=== PATIENT | male | born 1940 | race Caucasian/White ===

== ENCOUNTER 2021-11-09 10:31 | Outpatient (CLI) | payer MEDICARE, SELFPAY ==
[2021-11-09 11:17] LABS: Albumin* 4.6 g/dL (3.3-5.0); Chloride* 103 mmol/L (96-114); Creatinine Urine 198.3 mg/dL; Potassium* 4.5 mmol/L (3.6-5.1); Sodium* 140 mmol/L (135-149)
[2021-11-09 11:19] LABS: Cholesterol* 138 mg/dL (90-199)
[2021-11-09 11:20] LABS: Alanine Aminotransferase* 26 U/L (4-50); Alkaline Phosphatase* 127 U/L (40-150); Aspartate Amino Transferase* 24 U/L (12-35); Bilirubin Total* 1.4 mg/dL (0.1-1.5); Blood Urea Nitrogen* 19 mg/dL (7-30); Calcium* 9.2 mg/dL (8.4-10.6); Carbon Dioxide* 26 mmol/L (20-32); Creatinine* 0.8 mg/dL (0.5-1.5); Estimated Glomerular Filt Rate 89 ml/min; Glucose* 170 mg/dL (60-115); Total Protein* 7.2 g/dL (6.0-8.3); Triglycerides* 108 mg/dL (40-149)
[2021-11-09 11:21] LABS: HDL Cholesterol* 38 mg/dL (>=40); LDL Cholesterol Calculated 78 mg/dL (<100); Microalbumin Creatinine Ratio 10 mg/g (0-30); Microalbumin Urine 2 mg/dL
== END 2021-11-09 10:32 | disposition home or self-care (01) ==
PROVIDERS: PCP Family Medicine; Visit Provider Family Medicine
DX: Z00.00 Encounter for general adult medical examination without abnormal findings (principal); E11.9 Type 2 diabetes mellitus without complications; E78.5 Hyperlipidemia, unspecified; F41.9 Anxiety disorder, unspecified; R53.83 Other fatigue; I10 Essential (primary) hypertension; E66.9 Obesity, unspecified
CPT/HCPCS: 80053; 80061; 82043; 82570

== ENCOUNTER 2022-06-28 10:30 | Outpatient (RCR) | payer MEDICARE, SELFPAY ==
--- NOTE | 2022-04-26 13:53 | PT.OPE ---
PT [facility] PT [facility] Start: 04/25/22 16:13 Freq: Status: Active Protocol: Document 04/26/22 13:52 CJT (Rec: 04/26/22 13:53 CJT [id number]) E-signed By Froilan Soto PT Physical Therapy Outpatient Evaluation Insurance Information Recert Due Date 06/23/22 Insurance Name are Medical Diagnosis M54.5 - low back pain M54.2 - cervicalgia R26.89 - other abnormalities of gait and mobility G89.29 - other chronic pain Treating Diagnosis M54.5 - low back pain M54.2 - cervicalgia R26.89 - other abnormalities of gait and mobility Referring Carlito Plaza MD Subjective Subjective Pt presents with multiple issues: neck pain, low back pain, concerns with his balance and falls. Pt is here with his , Ale today. Pts primary complaints today are neck and low back pain, however he also mentions that balance is a top concern of his. Pt recently started exercising again and has been walking regularly about (.75-. 8 miles daily). Balance is way off, dizziness. Sometimes I put my head back and it's almost like I have some vertigo. Pt would like to reduce his back pain and improve his balance. His headaches have reduced in frequency since he started walking again. Pts tells me that he has been walking with short stride length, leans forward, and seems to be in a hurry to find a seat at times. Back pain also causes pain into glutes and into legs , pt points to his hamstrings and anterior thighs. Issues with stepping off curbs as well - sounds like this challenges his balance and strength. Pain in low back/ glutes relieves with sitting Falls in the last year: yes (2 ) Fear of falling: yes Concerns with balance: yes Pain Comments 07/05 Date of Last Physician Visit 04/18/22 Current Work Status Retired Preferred Name Ramez Precautions Therapy Limitations/Systems Review Not Limited Objective Other/Pertinent Objective Cervical ROM Extension ? 33 pain on L side of cervical spine Flexion ? 51 *stretch at posterior skull/cervical spine R/L Side Bend ? 12/05 R/L Rotation ? 35/35 *pt reports pain with overpressure by therapist in each direction ? hard end fell noted with lateral flexion and rotation motions B R Shoulder ROM Flexion/Abduction/IR/ER ? 160/ 160/T10/75 L Shoulder ROM Flexion/Abduction/IR/ER ? 160/ 160/T9/75 Cervical Strength Extension - 5/5 MMT Flexion - 5/5 MMT R/L Side Bend - 5/5 MMT R/L Rotation - 5/5 MMT *did not test cervical flexion endurance Standing Posture: pts hips in approx. 5 degrees flexion when standing erect B Hip Strength Flexion - 5/5 MMT Abduction (seated) - 5/5 MMT Adduction (seated) - 5/5 MMT IR - 4/5 MMT ER - 5/5 MMT Extension - DNT R knee Extension - 5/5 MMT R Knee Flexion - 4+/5 MMT L knee Extension - 5/5 MMT L knee Flexion - 4+/5 MMT R ankle DF - 5/5 MMT L ankle DF - 5/5 MMT Palpation: pt reports pain/ tenderness with palpation to R >L suboccipitals, cervical paraspinals, Gait: short stride length, minimal/no arm swing, slight forward lean 4-Stage Balance: unable to complete stages III and IV ( tandem and SL stance); pt otherwise shows normal sway during stages I, II TU.02s 5 Times Tgf-yb-Wvphn: 18.42s Trosper-Hallpike negative bilaterally today - testing limited due to poor cervical AROM Assessment Assessment/Impression Ramez presents with his Ale today with complaints of neck pain, low back pain, dizziness, and balance concerns. Pt has not been exercising regularly for past 2 years following his second SAMMY. Has started walking again over the past few months with his at [employer] walking approx .75 miles daily in the AM and this is going well, however, after about 20 minutes he needs to sit and rest due to pain in his thighs and glutes. Pts tells me that Ramez has been walking with a short stride length and sometimes walks with what sounds like a festinating gait , however, when I demonstrate this for her in the clinic she tells me it does not look similar to what he is doing. Testing reveals well preserved strength in pts LEs and cervical spine although there are exceptions (see objective) . Cervical AROM is very limited with hard end feel during PROM, likely due to age -related arthritis and joint space narrowing. Pt presents with significant pain with palpation throughout R>L cervical spine and has significant spasm in R SCM muscle. I do think that his dizziness may be related to muscle tissue tension in his cervical spine, especially with his history or headaches. Pt tells me today that he felt a headache onset as well as reduction with palpation to his cervical spine. Testing for BPPV is negative today although needs further assessment. Pts lack of cervical ROM is very limited and achieving a good Antwon- Hallpike test was challenging. Further testing and assessment is needed in order to provide complete therapy for Ramez, but we will continue this when he returns. The nature of the pts condition was explained and all questions were answered to the pts satisfaction. Skilled PT services are medically necessary to address deficits and return patient to highest level of function. Recommend physical therapy sessions 2/ week for 8 weeks. Pt would like to start with 6 sessions and see how he is doing, however he agrees to our plan of scheduling twice weekly for 8 weeks - will modify as needed. Pt agrees with this plan. Printout of HEP was given for I completion and pt gives verbal understanding of each exercise. Plan of Care Rehabilitation Potential Good Physical Therapy Goals STG - To be completed in 2-3 weeks: 1. Pt will demo improve cervical lateral flexion and rotation by 5-10 degrees each so that he may look over his shoulder while driving to watch for oncoming traffic. 2. Pt will balance 10+ seconds in tandem stance with either foot forward as indication of improved static balance to reduce risk of falls. 3. Pt will report reduce in back and neck pain by factor of 2 so that he may continue walking with his for exercise without stopping to rest and recover. LTG - To be completed in 8 weeks: 1. Pt to be I with HEP so that he may I manage progression of symptoms. 2. Pt will complete TUG in <12 seconds as indication of improved mobility and balance as well as to classify him as reduced risk for falling. 3. Pt will complete 5 sit-to- stands from chair in <12 seconds as indication of improved functional strength and reduce risk of falls. 4. Pt will report ability to ambulate 20+ minutes without onset of hip and thigh pain so that he may gradually increase his walking distances with his to maintain his cardiovascular fitness. Treatment Plan/Direct Interventions Gait Training,Heat,Joint Mobilization,Manual Therapy, Neuromuscular Re-ed,Self-Care/ Home Management,Therapeutic Activities,Therapeutic Exercises Frequency/Duration 2/week for 8 weeks Patient Will Be Discharged From Therapy Completion of LTG(s),Skills Plateau,Independent w/HEP, Independently Progressing Evaluation Billing Untimed Code Treatment Minutes 65 PT Eval No Charge No Complexity Low Certification Information Initial Certification Date 04/26/22 Ending Certification Date 06/23/22 Provider Signature Shows Agreement With POC & Medical Necessity Physician Signature & Date Requested Please Sign/Date Here Physician Comment/Change : Physician NPI Number #
--- NOTE | 2022-06-01 16:30 | PT.OPDN ---
PT [facility] Daily Note PT [facility] Daily Note Start: 04/25/22 16:13 Freq: Status: Active Protocol: Document 06/01/22 12:59 CJT (Rec: 06/01/22 16:30 CJT [id number]) E-signed By Froilan Soto, PT PT [facility] Daily Progress Note Visit Information Note Type Recert/Progress Note Visit Number 8 Insurance Authorized Visits no auth required Physician Authorized Visits eval and treat Insurance Information Recert Due Date 06/23/22 Insurance Name jessica Medical Diagnosis M54.5 - low back pain M54.2 - cervicalgia R26.89 - other abnormalities of gait and mobility G89.29 - other chronic pain Treating Diagnosis M54.5 - low back pain M54.2 - cervicalgia R26.89 - other abnormalities of gait and mobility Referring Carlito Plaza MD Subjective Subjective Pt presents with his Ale today and 4WW. Would like to review proper use of walker as well as discuss plan for Ramez in regard to his walking when family flies down to [place] later this month for vacation. Preferred Name Ramez Home Exercise Home Exercise Comments [id number] Objective Other/Pertinent Objective Cervical ROM: today (initial evaluation) Extension ? 30 (33) Flexion ? 45 (51) R/L Side Bend ? 10 (12/05) R/L Rotation ? 54/46 (35/35) 4-Stage Balance: unable to complete stage IV (SL stance); pt otherwise shows normal sway during stages I, II, and III - was previously not able to complete stage III TU.15s (11.02s) TUG with 4WW: 11.4s 5 Times Lnr-jn-Xhzrd: 13.71s ( 18.42s) Patient Instructed in Risks/Benefits Yes Therapeutic Exercise Therapeutic Exercise Minutes (minutes) 5 Therapeutic Exercise: To Restore Squats with hands at rail 2 x Functional Status 8 Heel raises 2 x 10 Therapeutic Activity Therapeutic Activity Minutes (minutes) 4 Therapeutic Activities Comments Ubb-ld-qsmfpz with arms crossed 3 x 5, 7, 7 Gait & Stair Training Gait Training/Stairs Minutes (minutes) 24 Gait & Stair Training Comments Pt ambulates 4 x 350 ft with use of 4WW; VC for lengthening stride and stepping into box of walker rather than trying to walk behind it; VC for avoiding downward pressure through hands with arms extended to reduce tricep involvement. 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 Appropriate use of AD's and education on stability of one device vs. another. Ramez and I had an in depth discussion today with his Ale regarding stability that a 4WW provides is significantly greater than the stability of a walking stick. The walker will also allow Ramez to conserve energy and to walk further and faster than the walking stick of no AD at all. Treatment Minutes Timed Code Treatment Minutes 57 Total Treatment Time 57 Billing Units Gait Training/Stairs Units 2 Self-Care Activity Units 2 Assessment/Impression Assessment/Impression Ramez's tricep pain with use of his walker is clearly due to his body mechanics during use. We reviewed proper use of the walker and he is not having tricep pain now that he is standing/walking closer to his walker, rather than pushing it out in front of him . It seems that his primary issue with the walker is that he did not trust his feet to swing underneath the walker for fear of tripping over the wheels or other components of the walker itself. Ramez, Ale, and I had a lengthy discussion regarding his choice of assistive devices and agreed that his 4WW is going to be Ramez's optimal choice for the time being for safety and energy conservation . Ramez has agreed to use his walker [place] for now until his endurance and gait improves to a point where he can return to use of a walking stick safely. Ramez shows improvements in his cervical AROM although R side bend remains very limited - I feel this is likely due to age- related arthritis. His outcome measure scores for 5 times nom-nh-jcrxk, TUG, and 4-Stage balance test have also shown promising improvement today. Ramez will continue to attend therapy sessions until he leaves for [place] later this month. We will continue to focus on his walking, balance, and functional strength here in therapy as well as continue to track his neck pain and dizziness symptoms as needed. Recommend continued PT services to address deficits and return t to highest level of function. Plan of Care Physical Therapy Goals STG - To be completed in 2-3 weeks: 1. Pt will demo improve cervical lateral flexion and rotation by 5-10 degrees each so that he may look over his shoulder while driving to watch for oncoming traffic. NOT MET - R lateral flexion unchanged; L lateral flexion and B rotation ROM goals MET 2. Pt will balance 10+ seconds in tandem stance with either foot forward as indication of improved static balance to reduce risk of falls. MET 3. Pt will report reduce in back and neck pain by factor of 2 so that he may continue walking with his for exercise without stopping to rest and recover. MET LTG - To be completed in 8 weeks: 1. Pt to be I with HEP so that he may I manage progression of symptoms. 2. Pt will complete TUG in <12 seconds as indication of improved mobility and balance as well as to classify him as reduced risk for falling. MET 3. Pt will complete 5 sit-to- stands from chair in <12 seconds as indication of improved functional strength and reduce risk of falls. NOT MET 4. Pt will report ability to ambulate 20+ minutes without onset of hip and thigh pain so that he may gradually increase his walking distances with his to maintain his cardiovascular fitness. Daily Plan of Care Continue per POC Recertification Information Provider Signature Shows Agreement With POC & Medical Necessity
== END 2022-09-12 09:59 | disposition home or self-care (01) ==
PROVIDERS: PCP Family Medicine; Visit Provider Family Medicine
DX: M54.50 Low back pain, unspecified (principal); G89.29 Other chronic pain; M54.2 Cervicalgia; R26.89 Other abnormalities of gait and mobility; Z51.89 Encounter for other specified aftercare
CPT/HCPCS: 97110; 97112; 97116; 97140; 97161; 97530; 97535

== ENCOUNTER 2022-09-07 08:35 | Outpatient (CLI) | payer MEDICARE, SELFPAY | END 2022-09-07 08:36 | disposition home or self-care (01) | LOC: NFLDREF 09-08 15:33 | PROVIDERS: PCP Family Medicine; Referring Provider Family Medicine; Visit Provider Family Medicine | DX: Z00.00 Encounter for general adult medical examination without abnormal findings (principal); E11.9 Type 2 diabetes mellitus without complications; I10 Essential (primary) hypertension; F41.9 Anxiety disorder, unspecified; E78.5 Hyperlipidemia, unspecified; I25.10 Atherosclerotic heart disease of native coronary artery without angina pectoris | CPT/HCPCS: 80053; 80061; 82043; 82570 ==

== ENCOUNTER 2023-09-11 09:17 | Outpatient (CLI) | payer MEDICARE, SELFPAY ==
--- OUTSIDE RECORDS SUMMARY | 2023-09-14 01:18 | XMS_ITS | Clinical Summary ---
Author Organization [facility] Address [place], [place] [address] Care Team Providers Care Wire Border Assembler Name Role Phone Carlito Perkins MD Primary Care Provider [phone] Allergies Active Allergy Reactions Criticality Noted Date Comments Benzalkonium Chloride Erythema 11/03/2016 red eyes Brimonidine Erythema 11/03/2016 Red eyes Timolol Erythema 11/03/2016 Red eyes Medications Medication Sig Dispensed Refills Start Date End Date Status aspirin-calcium carbonate 81 mg-300 mg calcium(777 mg) tab Daily Active acetaminophen (TYLENOL EXTRA STRGTH) 500 mg tablet Take 1,000 mg by mouth. 09/20/2018 Active amLODIPine-benazepri l, 5-20 mg, (LOTREL) 5-20 mg capsule Twice A Day 07/23/2019 Active gabapentin (NEURONTIN) 300 mg capsule 03/08/2020 Active latanoprost (XALATAN) 0.005 % ophthalmic solution Bedtime Activ e metFORMIN (GLUCOPHAGE) 500 mg tablet 07/28/2019 Active metoprolol succinate (TOPROL XL) 100 mg Sustained-Release tablet 03/15/2020 Active melatonin 5 mg capsule Take 1 capsule by mouth. 0 03/31/2020 Active zinc acetate (GALZIN) 50 mg (zinc) cap Take 1 capsule by mouth 3 times daily before meals. 0 03/31/2020 Active ergocalciferol (VITAMIN D2) 50,000 unit capsule Take 1 capsule by mouth. 0 03/31/2020 Active budesonide (ENTOCORT EC) 3 mg capsuleIndications:L ymphocytic colitis,Diarrhea, unspecified type See comments 63 capsule 03/31/2020 Active atorvastatin (LIPITOR) 80 mg tabletIndications: CVD (arteriosclerotic cardiovascular disease) Take 1 Tablet (80 mg) by mouth once daily with evening meal. Please call to schedule follow up appointment in October. Thank you 90 Tablet 1 08/15/2021 Active Social History Tobacco Use Types Packs/Day Years Used Date Smoking Tobacco: Never Smokeless Tobacco: Never Tobacco Cessation:Counseling Given: Yes Social Connections Answer Date Recorded Frequency of Communication with Friends and Fami ly Not on file 02/26/2021 Financial Resource Strain Answer Date R ecorded Difficulty of Paying Living Expenses Not on file 02/26/2021 Difficulty of Paying Living Expenses Not on file 02/26/2021 Sex and Gender Information Value Date Recorded Sex Assigned at Not on file Gender Identity Not on file Sexual Orientation Not on file Obstetrics History Last Filed Vital Signs Vital Sign Reading Time Taken Comments Blood Pressure 139/75 03/31/2020 2:14 PM [facility]F [facility]UCIER Pulse 80 03/31/2020 2:14 PM [facility]F [facility]UCI[facility] Temperature - - Respiratory Rate 16 11/03/2016 11:5 7 AM CDT Oxygen Saturation 98% 03/31/2020 2:14 PM CHEF SAUCIER Inhaled Oxygen Concentration - - Weight 120.4 kg (265 lb 6.4 oz) 03/31/2020 2:14 PM [facility]F [facility]UCIER Height - - Body Mass Index - - Plan of Treatment Health Maintenance Due Date Last Done Comments Tdap [birth year]/27/1951 Depression screening for age 12+ 1952 BMI (ht and wt on same day) for age 18+ 1958 Tetanus booster 1960 Zoster (shingles) series for age 50+ (1 of 2) 1990 Medicare Wellness for age 65+ 2005 Pneumococcal series for age 65+ (1 of 1 - PCV) 2005 COVID-19 vaccine series (2022-24 season) 2022 04/27/2020, 04/06/2020 Influenza for age 65+ 10/28/2023 Care Teams Wire Border Assembler Relationship Specialty Start Date End Date Carlito Perkins MD [address] [place] [phone] PCP - General Family Practice 11/14/16
--- OUTSIDE RECORDS SUMMARY | 2023-09-14 01:18 | XMS_ITS | Continuity of Care Document ---
Author Organization [facility] Address [address] [address] [place] [address] Phone Care Team Providers Care House Nurse Name Role Phone Unavailable Unavailable Unavailable Allergies, Adverse Reactions, Alerts Substance Reaction Status Criticality No Known allergies Medications Medication Instructions Dosage Effective Dates (start - stop) Status Comments Toprol XL 50 mg 24 hr Tab Take one tablet by mouth every other day - Active Entocort EC 3 mg 24 hr Cap Take one tablet by mouth daily - Active Lotrel 5 mg-20 mg Cap Take one tablet by mouth daily - Active Lipitor 20 mg Tab Take 1 tablet by mouth daily - Active GLYBURIDE 2.5 MGTABLET Take 1 tablet by mouth daily - Active Toprol XL 50 mg 24 hr Tab Take one tablet by mouth daily - No Longer Active Procedures Procedure Date Subsqt Hosp-da E&m Minr Compl 7 Subsqt Hosp-da E&m Minr Compl 7 Subsqt Hosp-da E&m Minr Compl 7 Subsqt Hosp-da E&m Minr Compl 7 Colonoscopy Flex; W/bx 1/mx Init Inpt Cons New/est Mod-hi 7 Advance Directives Directive Yes / No Effective Date File Name No Information Encounters Encounter Description Practice Location Reason(s) For Visit Diagnoses Date Provider Providers Copied on Encounter [facility] [address] [address], [place], [place], [id number], [place] tel:[phone] [facility] No Information 7 No Information Referring Provider: Referral Self, USE FOR SELF REFERRALS. [facility] [address] [address], [place], [place], [id number], [place] tel:[phone] [facility] No Information 200 7 No Information Subsqt Hosp-da E&m Minr Compl [facility], [address] [address], [place], [place], [id number], tel:[phone] [facility] No Information 200 7 No Information Referring Provider: Listed Not. Subsqt Hosp-da E&m Minr Compl [facility], [address] [address], [place], [place], [id number], tel:[phone] [place] [address] No Information 200 7 No Information Referring Provider: Listed Not. Subsqt Hosp-da E&m Minr Compl [facility], [address] [address], [place], [place], [id number], tel:[phone] [facility] No Information [address]. [address] [place] [address], [place], [place], [id number], . tel:[phone] Referring Provider: Listed Not. [facility], [address] [address], [place], [place], [id number], tel:[phone] [facility] No Information 7 No Information Referring Provider: Listed Not. Init Inpt Cons New/est Mod-hi [facility], [address] [address], [place], [place], [id number], tel:[phone] [facility] No Information 7 Aaron Mur[place]. [address] [place] [address], [id number], . tel:[phone] Referring Provider: Listed Not. Family History Family Member Type Diagnosis Age At Onset No Information Payers Payer name Insurance type Covered republican ID Authorrickia tijavi(s) Medicare [facility] CI [id number] Blue Cross [facility] CI [id number] Social History Type Description Quantity Date Captured Comments Sex Male Smoking Status No Information Chief Complaint And Reason For Visit No Information Reason For Referral Reason For Referral No Information History Of Present Illness Encounter Date Complaint History Of Prese nt Illness No Information Functional Status Date Functional Assessmen t No Information Instructions Date Instruction Additional Infor mation No Information Assessments Type Assessment Date No Information Patient Care Teams Name Effective Dates (start - stop) Status Members No Information
== END 2023-09-11 09:18 | disposition home or self-care (01) ==
LOC: NFLDREF 09-14 01:17
PROVIDERS: PCP Family Medicine; Referring Provider Family Medicine; Visit Provider Family Medicine
DX: E11.9 Type 2 diabetes mellitus without complications (principal); E78.5 Hyperlipidemia, unspecified; I10 Essential (primary) hypertension
CPT/HCPCS: 80053; 80061; 82043; 82570

== ENCOUNTER 2023-09-18 08:07 | Outpatient (RCR) | payer MEDICARE, SELFPAY ==
[2023-09-18] MEDS: REGADENOSON 0.4 MG/5 ML SYRINGE IVP (09:05)
[2023-09-18] MEDS: SODIUM CHLORIDE 0.9 % (FLUSH) 10 ML SYRINGE IVF (09:05)
[2023-09-18 10:37] VITALS: BP 134/82; PULSE 88; RESP 18
--- NOTE | 2023-09-18 11:28 | W.PM.STED ---
Stress Test Note Date Date Seen: 09/18/23 Date of test: 09/18/23 Providers Primary care provider: Carlito Perkins Stress test physician: Rome Shea Stress Test Note Stress test ordered: Lexiscan Indication for test: Coronary artery disease, post cardiac stent Stress test medicine: Lexiscan Results discussion: This very nice 82-year-old gentleman presents for the above test after review of the cardiac stress test medical history form, and understanding the risks benefits and side effects he would like to proceed. Pretest EKG shows normal sinus rhythm with a ventricular rate of 72, diffuse ST wave abnormalities are noted throughout the precordium, in the inferior leads. With Q-waves noted in lead 3. Standard Lexiscan protocol is done over 5 minute. His maximum heart rate was 94, maximum blood pressure was 137/76. Subjectively he did not have no complaints during this test. Objectively there is no ST wave abnormalities other than his baseline abnormalities noted. Impression: Negative electrographic portion of Lexiscan, subjectively negative Follow up suggested: Await nuclear imaging report, clinical correlation with this will be needed, there were no complications in this patient left the testing area in good condition
== END 2023-09-18 10:00 | disposition home or self-care (01) ==
LOC: STRESS 08:07
PROVIDERS: PCP Family Medicine; Visit Provider Family Medicine
DX: I25.10 Atherosclerotic heart disease of native coronary artery without angina pectoris (principal); R06.09 Other forms of dyspnea
CPT/HCPCS: 78452; 93016; 93017; A9500; J2785

== ENCOUNTER 2024-03-11 08:45 | Outpatient (CLI) | payer MEDICARE, SELFPAY | END 2024-03-11 08:46 | disposition home or self-care (01) | LOC: NFLDREF 03-17 04:17 | PROVIDERS: PCP Family Medicine; Referring Provider Family Medicine; Visit Provider Family Medicine | DX: E11.9 Type 2 diabetes mellitus without complications (principal) | CPT/HCPCS: 83036 ==

== ENCOUNTER 2024-12-10 07:43 | Outpatient (CLI) | payer MEDICARE, SELFPAY | END 2024-12-10 07:44 | disposition home or self-care (01) | LOC: NFLDREF 12-16 09:48 | PROVIDERS: PCP Family Medicine; Referring Provider Family Medicine; Visit Provider Family Medicine | DX: E11.9 Type 2 diabetes mellitus without complications (principal); R53.83 Other fatigue | CPT/HCPCS: 80053; 80061; 82043; 82570 ==